=== PATIENT | male | born 1990 ===

== ENCOUNTER 2024-06-25 12:45 | Outpatient (CLI) | payer BC, SELFPAY ==
--- NOTE | ~2024-06-25 | US_ITS ---
EXAMINATION: US scrotum doppler DATE: 06/25/2024 13:20 INDICATION: Orchalgia . TECHNIQUE: Grayscale and Doppler ultrasound images of the testes were obtained. COMPARISON: None. FINDINGS: The right testis measures 4.3 x 2.3 x 2.9 cm. The left testis measures 4.2 x 2.3 x 3.7 cm. No testicular mass. 5 mm right testicular appendix. There is normal vascular flow to both testes. The right epididymis is normal with normal vascular flow. The left epididymis is normal with normal vasc ular flow. Small bilateral varicoceles. Trace bilateral hydroceles. IMPRESSION: Small bilateral varicoceles. Trace bilateral hydroceles. Reviewed, dictated and finalized at location K. [employer]
== END 2024-06-25 12:46 | disposition home or self-care (01) ==
LOC: MICIMG 12:47
PROVIDERS: PCP Nurse Practitioner Family; Visit Provider Nurse Practitioner Family
DX: N50.819 Testicular pain, unspecified (principal); I86.1 Scrotal varices
CPT/HCPCS: 76870; 93976